=== PATIENT | male | born 1950 | race Caucasian/White ===

== ENCOUNTER 2023-12-28 13:20 | Inpatient (IN) | payer OTHER, MEDICARE, SELFPAY ==
[2023-12-28] VITALS (9 sets, daily range): BP systolic 88–169; BP diastolic 69–87; BMI 28.9; BMI 28.1
[2023-12-28 08:15] LABS: Glucose - Point of Care 122 mg/dl (70-99)
--- NOTE | 2023-12-28 08:36 | ED.GENMED ---
History of Present Illness
General
Chief Complaint: Weakness
Source: patient and family (Sons)
Exam Limitations: altered mental status
Time Seen by Provider: 12/28/23 08:21
Nursing documentation reviewed up to this point in time: agreed with
History of Present Illness
History of Present Illness:
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 Patient is somewhat limited as a
historian�while he is oriented he seems to be having some difficulty verbalizing what is wrong. His sons say that they ate dinner with him on Tuesday evening and that he appeared to be in his normal state of health. Yesterday afternoon when I saw
him they noted that he was markedly confused and symptoms have persisted since then. Patient describes himself as feeling 'disoriented.' He says it has been going on for the past few days. He says he has been having associated chills although he
reports that he checked his temperature at home and it was normal. He reports mild headache. He denies any other specific complaints�on review of systems he denies chest pain, abdominal pain, back pain/flank pain; he denies any coughing or
shortness of breath. He denies any nausea, vomiting, diarrhea. He denies any URI symptoms. He denies any urinary symptoms. He denies any change in his vision. He denies any weakness or numbness in his extremities. He has chronic wound on the
left ankle which will occasionally have some drainage but nothing unusual recently.
Review of Systems
Review of Systems
All Other Systems: ROS reviewed and negative except as documented in HPI and ROS
Constitutional: Reports fatigue and chills; Denies fever
EENT: Denies sore throat or runny nose
Respiratory: Denies cough or trouble breathing
Cardiac: Denies chest pain
ABD/GI: Denies abdominal pain, nausea, vomiting or diarrhea
: Denies dysuria or flank pain
Musculoskeletal: Denies neck pain or back pain
Skin: Reports other (Chronic wound)
Neurological: Reports headache and other ('Disoriented'); Denies dizzy, weakness or numbness
Phy Exam
Physical Exam
Physical Exam:
General: Awake, alert, oriented x3; frequently beginning sentences and then trailing off unable to complete them; no acute distress
Head: Normocephalic, atraumatic
Eyes: Conjunctiva normal, EOMI, pupils equal round and reactive to light bilaterally, visual frank intact
Throat: Airway intact, handling secretions
Neck: Trachea midline, supple without meningismus
Lungs: Clear to auscultation bilaterally, no wheezing, rales, rhonchi
Heart: Regular rate and rhythm, no murmurs, gallops, or rubs
Abd: Soft, non distended, nontender
Neuro: Cranial nerves intact 2 through 12; he does not have any dysarthria; on NIH stroke scale speech and naming testing he has no difficulty but when speaking in conversation he seems to have some hesitancy/word finding difficulties; no limb
ataxia, motor and sensory function is intact and symmetric upper and lower extremities
Skin: Patient has small wound medial left ankle no active drainage noted
Extremities: Bilateral lower extremity edema, warm and well-perfused extremities with good capillary refill
Scores
NIH Stroke Score
Level of Consciousness: 0 - Alert
LOC Questions: 0-Answers both correctly
LOC Commands: 0-Performs both correctly
Best Horizontal Gaze: 0-Normal
Visual Frank: 0=Normal, no visual loss
Facial Palsy: 0=Normal, symmetrical
Motor - Right Arm: 0=No drift 10 seconds
Motor - Left Arm: 0=No drift 10 seconds
Motor - Right Le-No drift 5 seconds
Motor - Left Le-No drift 5 seconds
Limb Ataxia: 0-Absent
Sensation: 0-Normal
Best Language: 1-Mild aphasia
Dysarthria: 0-Normal
Extinction and Inattention: 0-No abnormality
Total Score:: 1
Thrombolytic Contraindication
Inclusion and Exclusion criteria reviewed: Yes
Reasons for NON-Tx with Thrombolytics ABSOLUTE Exclusions: Greater than 4.5 hrs from onset of sxs
Heart Failure Risk
Heart Failure Risk Score: Not Applicable
Heart Score for Chest Pain Patients
STEMI patient?: Not applicable
Withdrawal Assessment of Alcohol
Withdrawal Assessment Completed?: Not applicable
Course
Orders/Labs/Results
Orders:
Orders
12/28/23 08:15
Electrocardiogram (*1) Urgent
Reason for Study: Fatigue / Weakness
EKG- Treatment ONCE
12/28/23 08:35
CT Head W/o Iv Contrast Urgent
Comment:
Reason For Exam: confusion, word finding difficulties
12/28/23 08:39
COVID-19 Antigen Urgent
Source: Nasal Swab
Complete Blood Count/With Diff Urgent
Comprehensive Metabolic Panel Urgent
12/28/23 08:45
Acetaminophen [Tylenol] 650 mg PO NOW STA
12/28/23 08:52
Lactate Level [Lactic Acid] Urgent
Blood Culture Urgent
FLORENCIA Source: Blood/Venous
Specimen Description:
12/28/23 09:12
CR Chest - 2 Views Urgent
Comment:
Reason For Exam: fever
12/28/23 09:37
Blood Culture Routine
FLORENCIA Source: Blood/Venous
Specimen Description:
12/28/23 09:43
Urinalysis Reflex To Culture Urgent
Date Specimen was Collected: 12/28/23
Time Specimen was Collected: 09:42
Urine Microscopic Reflex Cult Urgent
12/28/23 12:00
IR[facility] CONSULT Urgent
Consulting Provider: Bulmaro Pereira
Was physician already notified: Yes
Reason for Consult/Procedure: LUMBAR PUNCTURE
Acknowledgement that appropriate orders are entered: Yes
NEUROLOGY CONSULT Urgent
Consulting Provider: Raul Gutierrez
Was physician already notified: Yes
12/28/23 12:02
Acyclovir [Zovirax Injection] 1,000 mg 0.9% Sodium Chloride 250 ml [Nss] 250 ml IV NOW
CefTRIAXone [Rocephin] 2,000 mg IV NOW STA
Vancomycin [Vancocin] 2,000 mg 0.9% Sodium Chloride 500 ml [Nss] 500 ml IV NOW
Abnormal Lab Results
12/28/23 12/28/23 12/28/23
08:13 08:39 09:43
MCH 32.1 H pg
(27.0-31.0)
Absolute Lymphs (auto) 1.0 L 10^3/uL
(1.2-3.4)
Lymphocytes % 17.4 L %
(20.5-51.1)
Sodium 133 L mmol/L
(135-145)
Chloride 96 L mmol/L
(98-107)
Glucose 119 H mg/dl
(70-99)
Total Bilirubin 1.4 H mg/dl
(0.2-1.3)
Ur Occult Blood Reflex 3+ A
(Negative)
Urine RBC 7-10 A /HPF
(0-2)
POC Glucose 122 H mg/dl
(70-99)
12/28/23 08:39
12/28/23 08:39
Vital Signs
Initial and Last Documented VS:
Initial Vital Signs
Temp Pulse Resp BP Pulse Ox
36.9 C 90 16 122/87 96
12/28/23 08:12 12/28/23 08:12 12/28/23 08:12 12/28/23 08:12 12/28/23 08:12
Last Documented Vital Signs
Temp Pulse Resp BP Pulse Ox
38.1 C H 79 18 143/82 96
12/28/23 08:44 12/28/23 09:22 12/28/23 09:22 12/28/23 08:22 12/28/23 08:12
Procedures
Lumbar Puncture
Indication for procedure:: fever, confusion
Procedure completed by: Leonidas Jara MD
Consent form signed: Yes
Anesthesia/sedation: 1% Lidocaine
Preparation: cleaned with Betadine
Position: decubitis
Needle Size: 20 gauge
Needle Type: Lumbar Needle
Number of attempts: 4
Unsuccessful atempt - no CSF obtained: Yes--unsuccessful attempt
Dressing applied to puncture site: bandaid
MDM/Problems Addressed
Differential Diagnosis Includes:
Infection including UTI, pneumonia, viral syndrome, meningitis/encephalitis; stroke; brain mass; brain bleed
MDM/Problems Addressed:
73-year-old male presents to the emergency room for evaluation of change in mental status�noted to be confused yesterday afternoon by family, patient says ongoing for the past few days. Also reports subjective chills and fatigue, mild headache
today. Vital signs are normal. Physical exam as above. Plan to place an IV check labs including a CBC and a CMP; swab for COVID. Check urinalysis and chest x-ray. Will check an EKG. Will send for CT head. Monitor closely reassess after the
above.
Patient spiked a fever after arrival here; added lactate and blood cultures to lab work. Treat with Tylenol. Continue to monitor.
Labs reviewed: CBC unremarkable, CMP no clinically significant abnormalities. Urinalysis no signs of infection. Chest x-ray no acute disease. CT head negative for any acute pathology. At this point no clear source for fever or altered mentation
patient did have mild headache�I think he should be ruled out for meningitis/encephalitis. Will proceed with lumbar puncture.
Attempt at lumbar puncture at bedside unsuccessful. Case discussed with interventional radiology to facilitate LP�will try to add on later today. Will treat empirically in the meantime with antibiotics and antivirals. Case discussed with
neurology for consultation as well. Will admit for continued workup and treatment. Discussed with hospitalist.
Chronic conditions affecting care:
Chronic wound
*Radiology
Radiology exam reviewed: radiology read reviewed
*Pulse Oximetry
Patient hypoxic: no
*EKG
Interpreted by ED Provider?: Yes
Heart Rate: 79
Rate: normal
Rhythm: sinus
[place]: left axis deviation
Interval: normal interval
QRS Pattern: other (Left anterior fascicular block)
Ischemia: other (Flattening of the T waves inferiorly)
*Critical Care Note
Total Time (30-74mins, 75-104mins- exclusive of procedures): Not Applicable
Data Reviewed
Review of Other/Old Records Reveals: Labs, Records and Discharge Summary
Source: patient, records and family
Patient Management
Discussion with other providers: Hospitalist (Discussed with hospitalist) and [employer] Vice President (Discussed with neurology, discussed with interventional radiology)
Escalation/DeEscalation of care consider admission/obs:
Admission indicated
ED Attending Note
-
Portions of this chart may have been created with voice recognition software.� Occasional wrong word or��sound alike� substitutions may have occurred due to the inherent limitations of voice recognition software.
Discharge Plan
Departure
Patient Disposition: Admit
Date of Disposition: 12/28/23
Time of Disposition: 12:05
Admit to doctor: Karthik
Presentation/result/management discussed w/ accepting MD/DO: Hospitalist
Discharge Problem:
Encephalopathy, Fever
Prescriptions:
No Action
acetaminophen 325 MG tablet
650 mg PO Q4HPRN PRN (Reason: Pain)
ibuprofen [Motrin IB] 200 MG tablet
200 mg PO Q8 PRN (Reason: pain)
levofloxacin [Levaquin] 750 MG tablet
750 mg PO DAILY
Patient Comments:
pt takes 500mg in am and 250mg at night
diphenhydramine-acetaminophen [Tylenol PM Extra Strength] 1 TAB tablet
2 tab PO HS PRN (Reason: pain)
cefdinir 300 mg capsule
300 mg PO BID Qty: 20 0RF
Referrals:
Rubin Angela MD [Family Provider] -
Interventions
Interventions:
ED- Cardiac Assessment Last Done: 12/28/23 09:06
ED- Neurological Assessment Last Done: 12/28/23 09:06
ED- Pulmonary Assessment Last Done: 12/28/23 09:06
Discharge Date and Time
Print Language: UZBEK
[2023-12-28 08:49] LABS: % Basophils 0.3 % (0-2); % Immature Granulocytes 0.3 % (0-0.5); % Lymphocytes 17.4 % (20.5-51.1); % Monocytes 8.1 % (1.7-9.3); % Neutrophils 73.9 % (42.2-75.2); Absolute Monocytes 0.5 10^3/uL (0.1-0.6); Absolute Neutrophils 4.4 10^3/uL (1.4-6.5); Hematocrit 45.5 % (39.0-52.0); Hemoglobin 16.2 g/dL (13.0-18.0); Mean Corp Hgb Conc. 35.6 g/dL (33.0-37.0); Mean Corpuscular Hgb 32.1 pg (27.0-31.0); Mean Corpuscular Volume 90.1 fL (80.0-94.0); Mean Platelet Volume 10.2 fL (7.4-10.4); Nucleated Red Blood Cells % 0 % (-); Platelet Count 236 10^3/uL (130-400); Red Blood Cell Count 5.05 10^6/uL (4.70-6.10); Red Cell Dist. Width 12.3 % (11.5-14.5)
[2023-12-28 09:00] LABS: ALT (SGPT) 33 U/L (0-50); AST (SGOT) 35 U/L (17-59); Albumin 4.4 g/dl (3.5-5.0); Alkaline Phosphatase 76 U/L (38-126); Blood Urea Nitrogen 16 mg/dl (9-20); Calcium 9.3 mg/dl (8.4-10.2); Chloride 96 mmol/L (98-107); Glucose 119 mg/dl (70-99); Potassium 4.4 mmol/L (3.5-5.1); Sodium 133 mmol/L (135-145); Total Bilirubin 1.4 mg/dl (0.2-1.3); Total Protein 7.2 g/dl (6.3-8.2); eGFR > 60.00
[2023-12-28 09:15] LABS: COVID-19 Antigen Negative (Negative)
[2023-12-28] MEDS: TYLENOL 650 MG PO ×2 (09:17→16:46)
[2023-12-28 09:21] LABS: Carbon Dioxide 22 mmol/L (22-30)
[2023-12-28 10:18] LABS: Urine Albumin Trace (Neg - Trace); Urine Bilirubin Negative (Negative); Urine Character Clear (Clear); Urine Color Yellow; Urine Glucose Negative (Negative); Urine Ketone Negative (Negative); Urine Leukocyte Negative (Negative); Urine Nitrite Negative (Negative); Urine Occult Blood 3+ (Negative); Urine Specific Gravity 1.025 (<1.030); Urine Urobilinogen Negative (Neg - 1+)
[2023-12-28 11:09] LABS: Urine Mucus Few
[2023-12-28 11:10] LABS: Urine White Cell 0-2 /HPF (0-5)
[2023-12-28] MEDS: ROCEPHIN 2000 MG IV (12:21)
--- NOTE | 2023-12-28 12:27 | HPS.HSE ---
Addendum entered and electronically signed by Sinan Rogers MD 12/28/23 13:25:
I saw and examined the patient.
The MANAGEMENT ASSISTANT or PA's note was reviewed and I agree with the note.
Comment: 73-year-old male who presents with change in mental status over the last 24 hours. He is felt disoriented and also noted mild headache and chills.
143/82, 79, 18, 98.9 �F, 96% on room air
Gen: NAD, AAOx3.
Eyes: EOMI, PERRLA, no scleral icterus.
Neck: supple.
CV: RRR, +S1/S2, no m/r/g.
Resp: CTAB, no rales, wheezes, or rhonchi.
Abd: +BS, soft, NT, ND
Skin: No rashes. Evidence of prior surgery in the medial left ankle. There is a sinus tract that is draining serous fluid. No evidence of cellulitis
Neuro: CN 2-12 intact, non-focal.
Psych: Normal mood and affect.
Lab Results
12/28/23 12/28/23 12/28/23
08:13 08:39 08:52
WBC 6.0
RBC 5.05
Hgb 16.2
Hct 45.5
MCV 90.1
MCH 32.1 H
MCHC 35.6
RDW 12.3
Plt Count 236
MPV 10.2
Abs Immat Gran (auto) 0.0
Absolute Neuts (auto) 4.4
Absolute Lymphs (auto) 1.0 L
Absolute Monos (auto) 0.5
Absolute Eos (auto) 0.0
Absolute Basos (auto) 0.0
Immature Gran % 0.3
Neutrophils % 73.9
Lymphocytes % 17.4 L
Monocytes % 8.1
Eosinophils % 0.0
Basophils % 0.3
Nucleated RBC % 0
Sodium 133 L
Potassium 4.4
Chloride 96 L
Carbon Dioxide 22
BUN 16
Creatinine 1.2
eGFR > 60.00
Glucose 119 H
Lactic Acid 1.0
Calcium 9.3
Total Bilirubin 1.4 H
AST 35
ALT 33
Alkaline Phosphatase 76
Total Protein 7.2
Albumin 4.4
Urine Color
Urine Clarity
Urine pH
Ur Specific [place]
Urine Ketones
Ur Occult Blood Reflex
Urine Nitrite (Reflex)
Urine Bilirubin
Urine Urobilinogen
Leukocyte Esterase Rfl
Urine RBC
Urine WBC (Reflex)
Ur Squamous Epith Cells
Urine Mucus
Urine Glucose
Urine Albumin (Reflex)
CSF Appearance
CSF Color
CSF WBC
CSF RBC
CSF Cell Count Tube #
CSF Granulocytes
CSF Lymphocytes
CSF Macrophages
CSF Crenated Cells
CSF Comment
CSF Glucose
CSF Total Protein
SARS-CoV-2 Antigen Negative
POC Glucose 122 H
12/28/23 12/28/23 12/28/23
09:43 11:24 11:24
WBC
RBC
Hgb
Hct
MCV
MCH
MCHC
RDW
Plt Count
MPV
Abs Immat Gran (auto)
Absolute Neuts (auto)
Absolute Lymphs (auto)
Absolute Monos (auto)
Absolute Eos (auto)
Absolute Basos (auto)
Immature Gran %
Neutrophils %
Lymphocytes %
Monocytes %
Eosinophils %
Basophils %
Nucleated RBC %
Sodium
Potassium
Chloride
Carbon Dioxide
BUN
Creatinine
eGFR
Glucose
Lactic Acid
Calcium
Total Bilirubin
AST
ALT
Alkaline Phosphatase
Total Protein
Albumin
Urine Color Yellow
Urine Clarity Clear
Urine pH 6.0
Ur Specific [place] 1.025
Urine Ketones Negative
Ur Occult Blood Reflex 3+ A
Urine Nitrite (Reflex) Negative
Urine Bilirubin Negative
Urine Urobilinogen Negative
Leukocyte Esterase Rfl Negative
Urine RBC 7-10 A
Urine WBC (Reflex) 0-2
Ur Squamous Epith Cells 3-5
Urine Mucus Few
Urine Glucose Negative
Urine Albumin (Reflex) Trace
CSF Appearance Cancelled Cancelled
CSF Color Cancelled
CSF WBC
CSF RBC
CSF Cell Count Tube #
CSF Granulocytes
CSF Lymphocytes
CSF Macrophages
CSF Crenated Cells
CSF Comment
CSF Glucose
CSF Total Protein
SARS-CoV-2 Antigen
POC Glucose
12/28/23 12/28/23 12/28/23
11:24 11:24 11:24
WBC
RBC
Hgb
Hct
MCV
MCH
MCHC
RDW
Plt Count
MPV
Abs Immat Gran (auto)
Absolute Neuts (auto)
Absolute Lymphs (auto)
Absolute Monos (auto)
Absolute Eos (auto)
Absolute Basos (auto)
Immature Gran %
Neutrophils %
Lymphocytes %
Monocytes %
Eosinophils %
Basophils %
Nucleated RBC %
Sodium
Potassium
Chloride
Carbon Dioxide
BUN
Creatinine
eGFR
Glucose
Lactic Acid
Calcium
Total Bilirubin
AST
ALT
Alkaline Phosphatase
Total Protein
Albumin
Urine Color
Urine Clarity
Urine pH
Ur Specific [place]
Urine Ketones
Ur Occult Blood Reflex
Urine Nitrite (Reflex)
Urine Bilirubin
Urine Urobilinogen
Leukocyte Esterase Rfl
Urine RBC
Urine WBC (Reflex)
Ur Squamous Epith Cells
Urine Mucus
Urine Glucose
Urine Albumin (Reflex)
CSF Appearance
CSF Color Cancelled
CSF WBC Cancelled Cancelled
CSF RBC Cancelled Cancelled
CSF Cell Count Tube # Cancelled
CSF Granulocytes
CSF Lymphocytes
CSF Macrophages
CSF Crenated Cells
CSF Comment
CSF Glucose
CSF Total Protein
SARS-CoV-2 Antigen
POC Glucose
12/28/23 12/28/23 12/28/23
11:24 11:24 11:24
WBC
RBC
Hgb
Hct
MCV
MCH
MCHC
RDW
Plt Count
MPV
Abs Immat Gran (auto)
Absolute Neuts (auto)
Absolute Lymphs (auto)
Absolute Monos (auto)
Absolute Eos (auto)
Absolute Basos (auto)
Immature Gran %
Neutrophils %
Lymphocytes %
Monocytes %
Eosinophils %
Basophils %
Nucleated RBC %
Sodium
Potassium
Chloride
Carbon Dioxide
BUN
Creatinine
eGFR
Glucose
Lactic Acid
Calcium
Total Bilirubin
AST
ALT
Alkaline Phosphatase
Total Protein
Albumin
Urine Color
Urine Clarity
Urine pH
Ur Specific [place]
Urine Ketones
Ur Occult Blood Reflex
Urine Nitrite (Reflex)
Urine Bilirubin
Urine Urobilinogen
Leukocyte Esterase Rfl
Urine RBC
Urine WBC (Reflex)
Ur Squamous Epith Cells
Urine Mucus
Urine Glucose
Urine Albumin (Reflex)
CSF Appearance
CSF Color
CSF WBC
CSF RBC
CSF Cell Count Tube # Cancelled
CSF Granulocytes Cancelled Cancelled
CSF Lymphocytes Cancelled Cancelled
CSF Macrophages Cancelled
CSF Crenated Cells
CSF Comment
CSF Glucose
CSF Total Protein
SARS-CoV-2 Antigen
POC Glucose
12/28/23 12/28/23 12/28/23
11:24 11:24 11:24
WBC
RBC
Hgb
Hct
MCV
MCH
MCHC
RDW
Plt Count
MPV
Abs Immat Gran (auto)
Absolute Neuts (auto)
Absolute Lymphs (auto)
Absolute Monos (auto)
Absolute Eos (auto)
Absolute Basos (auto)
Immature Gran %
Neutrophils %
Lymphocytes %
Monocytes %
Eosinophils %
Basophils %
Nucleated RBC %
Sodium
Potassium
Chloride
Carbon Dioxide
BUN
Creatinine
eGFR
Glucose
Lactic Acid
Calcium
Total Bilirubin
AST
ALT
Alkaline Phosphatase
Total Protein
Albumin
Urine Color
Urine Clarity
Urine pH
Ur Specific [place]
Urine Ketones
Ur Occult Blood Reflex
Urine Nitrite (Reflex)
Urine Bilirubin
Urine Urobilinogen
Leukocyte Esterase Rfl
Urine RBC
Urine WBC (Reflex)
Ur Squamous Epith Cells
Urine Mucus
Urine Glucose
Urine Albumin (Reflex)
CSF Appearance
CSF Color
CSF WBC
CSF RBC
CSF Cell Count Tube #
CSF Granulocytes
CSF Lymphocytes
CSF Macrophages Cancelled
CSF Crenated Cells Cancelled Cancelled
CSF Comment Cancelled Cancelled
CSF Glucose Cancelled
CSF Total Protein Cancelled
SARS-CoV-2 Antigen
POC Glucose
CXR (read by me): No acute cardiopulmonary abnormality.
CT brain: No acute intracranial abnormality noted.
Acute encephalopathy:
-Extensive workup in the ER is unrevealing. Chest x-ray and CT scan of the brain are unremarkable. Urinalysis is not suggestive of urinary tract infection. No leukocytosis, patient afebrile. Left ankle without evidence of infection and appears
unchanged from prior as per patient's family at bedside.
-LP attempted in the ER. This is the neck step in workup. Consult IR for diagnostic lumbar puncture. Check Lyme and HSV PCR.
-Continue with empiric vancomycin/cefepime/acyclovir
-Consult neurology and infectious disease
Original Note:
Family Physician
-
Family Physician: Rubin Angela
Chief Complaint
-
Confusion, chills, headache
History of Present Illness
73-year-old male from home complaining of feeling disoriented since yesterday 12/27/2023 his son reported to the ER yesterday afternoon he noticed his father markedly confused complaining of chills with a mild headache. The Patient denies any tick
bites, rashes sore throat, recent illness, blurred vision, chest pain, palpitations, shortness of breath, abdominal pain, nausea, vomiting, diarrhea, urinary symptoms, rash, recent illness, recent sick contacts. He is on daily Bactrim for his
chronic left ankle wound for the past 20 years he has past medical history of chondrosarcoma of the left ankle with removal and , chronic left ankle wound, left ankle fusion varicose veins, former smoker.
Medical History
Past Medical History
Past Medical History: Reports Other
Additional Past Medical History:
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
chronic left ankle wound from above
left ankle fusion varicose veins
Former smoker
Daily alcohol use 1 drink
Past Surgical History: Reports Other
Additional Past Surgical History:
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
Social History
Tobacco: Former Smoker (30-year on/off 1/2 pack/day quit 3 years ago 2020)
Alcohol: Daily (1 drink of gin mixed with juice or soda)
Drug: None
Personal:
Living: Alone
Employment: Employed ([employer])
Family History
Family History: Other (Father Alzheimer's late 70s mother age 90 old age)
Allergies / Home Medications
Allergies reflects when Allergies were last updated in [facility].
Home Medications with original date entered in [facility]
Allergy/Medication List:
Allergies
Allergy/AdvReac Type Severity Reaction Status Date / Time
No Known Allergies Allergy Verified 03/06/23 11:13
Home Medications
sulfamethoxazole 800 mg-trimethoprim 160 mg tablet 1 tab PO DAILY ankle wound 12/28/23
Review of Systems
-
History Source: Patient and Family (Son at bedside)
A 12 point ROS was completed and negative except as noted: Yes
Constitutional: Reports Fatigue and Chills; Denies Fever
EENT: Denies Sore Throat or Runny Nose
Respiratory: Denies Cough or Trouble Breathing
Cardiac: Denies Chest Pain, Diaphoresis, Palpitations or Syncope
Abdomen/GI: Denies Abdominal Pain, Nausea, Vomiting, Diarrhea, Constipated, Bloody Stools or Black Stools
: Denies Dysuria, Frequency, Flank Pain, Incontinence, Difficulty Voiding, Urgency, Bleeding or Dark Urine
Musculoskeletal: Denies Joint Pain, Joint Swelling, Muscle Pain, Muscle Stiffness or Edema
Skin: Reports Other (Chronic old incision/removal costochondral mass left medial aspect of left lower ankle 20 years ago no open active wound); Denies Itching or Rash
Neurological: Reports Headache; Denies Dizzy or Weakness
Endocrine: Reports No Symptoms
Hematologic/Lymphatic: Reports No Symptoms
Psych: Reports Calm
Physical Exam
Vital Signs
Vital Signs
Temp Pulse Resp BP Pulse Ox
98.9 F 79 18 143/82 96
12/28/23 12:21 12/28/23 09:22 12/28/23 09:22 12/28/23 08:22 12/28/23 08:12
Physical Exam
General: Comfortable, Conversant, Fever, Chills and Other (Lethargic falls asleep during exam, although when awaken is oriented x 3)
HEENT: NormoCephalic, Anicteric, Moist mucous membranes, Atraumatic, PERRLA (EOMs intact), [place] Conjunctivae, No Ptosis and Neck Nontender (Negative nuchal rigidity)
Respiratory: Clear; No Wheezes, Rales or Rhonchi
Cardiac: S1/S2 and Regular Rhythm; No Murmur, Rub, Gallop or Peripheral Edema
Breast: Deferred by me
GI: Soft, Non Tender, Non Distended, Normal Bowel Sounds and No Hepatosplenomegaly
Rectal: Deferred by Provider
Genito-urinary: Deferred by me
Musculoskeletal: No Clubbing, No Cyanosis, No Edema and Other (Chronic old incision/removal costochondral mass left medial aspect of left lower ankle 20 years ago no open active wound)
Skin: Warm and Dry; No Rash or Jaundice
Neuro: No Motor Deficits, Nonfocal/grossly intact, Cranial Nerves Intact, No Sensory Deficits and Other (Lethargic falls asleep during exam although is oriented x 3 name, person, place, son, history); No Slurred Speech, Facial Droop or Tremors
Psych: Calm
Laboratory Results
-
12/28/23 08:39
12/28/23 08:39
Laboratory Results
Lactic Acid 1.0 mmol/L (0.7-2.0) 12/28/23 08:52
Total Bilirubin 1.4 mg/dl (0.2-1.3) H 12/28/23 08:39
AST 35 U/L (17-59) 12/28/23 08:39
ALT 33 U/L (0-50) 12/28/23 08:39
Alkaline Phosphatase 76 U/L (38-126) 12/28/23 08:39
Impression/Plan
-
Impression/plan:
Admit to MedSurg
#Encephalopathy with fever concern for possible meningitis/encephalitis
UA, chest x-ray, COVID-negative
-LP attempt by ER unsuccessful
-IR consulted for LP later today-check fluid analysis
-Neurochecks every 4
-Consult Infectious disease
-Consult Neurology
-Follow blood cultures x 2, CBC, CMP check Lyme
-Tylenol as needed headache/fever
-Acyclovir 1000 mg now then 1000 mg every 8 hours
-IV Rocephin, IV vancomycin
-PT/OT/case management consult
#Chondrosarcoma of the left ankle with removal and , chronic left ankle wound closed
#Chronic left ankle fusion varicose veins
#Chronic Bactrim daily for his chronic left ankle wound for the past 20 years
-HOLD Bactrim
#Daily alcohol use
Reports 1 drink of gin mixed with juice or soda
-Will check B12 level
#Former smoker
On and off 30-year 1/2 pack/day quit in 2020
DVT prophylaxis
SCDs
Full code
[2023-12-28] MEDS: ZOVIRAX INJECTION 270 MG IV (13:05)
[2023-12-28 13:21] LABS: INR 1.17; PT 14.9 Sec (11.4-14.6)
[2023-12-28 16:18] LABS: CSF Clarity Clear; CSF Color Colorless; CSF Tube # 4
[2023-12-28 16:19] LABS: Red Cell Count/CSF 2 mm^3
[2023-12-28 16:20] LABS: Spinal Fluid Glucose 54 mg/dl (40-70); Spinal Fluid Protein 56 mg/dl (12-60)
[2023-12-28 16:31] LABS: Folate 15.1 ng/ml (2.76-20); Vitamin B12 876 pg/ml (239-931)
[2023-12-28] MEDS: VANCOCIN 540 MG IV (16:46)
[2023-12-28 16:55] LABS: White Cell Count/CSF 30 mm^3 (0-5)
--- NOTE | 2023-12-28 17:26 | CON.ID ---
Consultation
-
Date/Time Consultation Requested: 12/28/2023 1224
Date/Time Consultation Performed: 12/28/2023 1700
Requesting Provider: Loree Gibbons
Performing Provider: Dr. Mansfield
Reason for Consultation: Encephalitis
Chief Complaint / Past History
History of Present Illness
Tom Peters is a 73-year-old man with a significant past medical history of chronic osteomyelitis of the left ankle area being evaluated at the request of Loree Gibbons in regards to encephalopathy. History is obtained from chart review, patient
interview, and history obtained from the patient's family who is at the bedside.
According to family, the patient ate dinner 2 days ago and was feeling well. Yesterday, when the patient went to work he reported feeling confused with some mild headache. Because of not feeling well, he went home early, and when the family
checked on him later in the evening he reportedly was not making sense. There was ongoing confusion noted this a.m., and the family brought him to the emergency room for further workup and evaluation.
At present, he feels groggy, and has been feeling feverish, but denies any significant pain. His son reports that he has been somewhat somnolent.
In the ER he was noted to have fever. He is status post lumbar puncture.
The patient reports recent travel to [place] approximately 3 weeks ago, along with travel to [facility] more recently. He does not recall any tick bites. He does not recall any mosquito bites. He notes no history of rash. He denies any neck
pain or stiffness. He does have 1 dog, but has not seen any ticks on the dog.
Past History
Additional Past Medical History:
Chondrosarcoma of the left ankle
Chronic osteomyelitis left ankle
Additional Past Surgical History:
Left ankle surgery
Allergy History:
No Known Allergies Allergy (Verified 03/06/23 11:13)
Medications Reviewed: Yes
Current Antibiotics:
Acyclovir
Vancomycin
Ceftriaxone
Social History
Tobacco: Former Smoker
Alcohol: Daily
Drug: None
Personal:
Living: Alone
Employment: Employed
Family History
Family History: Not Pertinent
Review of Systems
Vital Signs
Temp Pulse Resp BP Pulse Ox
102.2 F H 89 18 155/79 96
12/28/23 16:10 12/28/23 16:10 12/28/23 16:10 12/28/23 16:10 12/28/23 16:10
Physical Exam
Physical Exam
Constitutional: No Acute Distress, Well Developed, Comfortable and Non-toxic
Head: Normocephalic
Eyes: Pupils Equal, Pupils Round, No Conjunctival Hemorrhage and Sclera Anicteric
Pharynx: Erythema
Oral: No Thrush and No Ulcers
Cardiovascular: Regular Rate and S1/S2; Negative S3/S4 or Murmur
Pulmonary: Clear and Non Labored
Gastrointestinal: Soft, Non Tender, Non Distended, Normal Bowel Sounds, No Rebound and No Guarding
Genito-Urinary: Negative Reeder or Suprapubic Tenderness
Extremities: Edema (LLE); Negative Cyanosis or Erythema
Musculoskeletal: Joint Swelling (L ankle area (chronically))
Skin: Warm and Dry; Negative Rash or Jaundice
Wound: Other (left medial ankle; punctate)
Neurological: Awake and Alert; Negative Meningeal Signs (No nuchal rigidity)
Psychological: Calm; Negative Agitated
Lab / Diagnostic Study Results
12/28/23 08:39
12/28/23 08:39
Abs Immat Gran (auto) 0.0 10^3/uL (0-0.05) 12/28/23 08:39
Absolute Neuts (auto) 4.4 10^3/uL (1.4-6.5) 12/28/23 08:39
Absolute Lymphs (auto) 1.0 10^3/uL (1.2-3.4) L 12/28/23 08:39
Absolute Monos (auto) 0.5 10^3/uL (0.1-0.6) 12/28/23 08:39
Absolute Basos (auto) 0.0 10^3/uL (0-0.2) 12/28/23 08:39
Immature Gran % 0.3 % (0-0.5) 12/28/23 08:39
Neutrophils % 73.9 % (42.2-75.2) 12/28/23 08:39
Lymphocytes % 17.4 % (20.5-51.1) L 12/28/23 08:39
Monocytes % 8.1 % (1.7-9.3) 12/28/23 08:39
Eosinophils % 0.0 % (0-6) 12/28/23 08:39
Basophils % 0.3 % (0-2) 12/28/23 08:39
PT 14.9 Sec (11.4-14.6) H 12/28/23 12:56
INR 1.17 12/28/23 12:56
Lactic Acid 1.0 mmol/L (0.7-2.0) 12/28/23 08:52
Ur Squamous Epith Cells 3-5 /LPF (Few) 12/28/23 09:43
Microbiology Results
Micro:
12/28/23 15:12 Meningitis/Encephalitis Panel (PCR) - Pending
Csf
12/28/23 15:12 CSF Culture - Pending
Csf Gram Stain - Pending
12/28/23 09:37 Blood Culture - Pending
Blood/Venous
12/28/23 08:52 Blood Culture - Pending
Blood/Venous
Imaging:
12/28/2023 CT head without contrast: No acute intracranial abnormalities noted. No large vessel territory infarction or mass. No acute intracranial hemorrhage. Please see full dictation for additional detail.
Assessment / Plan
Acute encephalopathy
- suspect viral etiology (ie. west nile virus)
Fever
Hx chronic (L) ankle osteomyelitis
- on suppressive bactrim
Recommendations:
Continue current abx/antivirals while PCR meningitis panel is pending, but if found to be negative, will discontinue further Rocephin, vancomycin and acyclovir.
Check West Nile IgM on CSF.
Continue with supportive measures.
Monitor neurostatus/cognition
[2023-12-28 17:37] LABS: Spinal Fluid Granulocytes 48 %; Spinal Fluid Lymphocytes 37 %; Spinal Fluid Macrophages 15 %
--- NOTE | 2023-12-28 19:25 | PTCARENOTE ---
Pt received from IR s/p lumbar puncture. Bandaid intact on back. Ambulated to unit bed from stretcher with minimal assistance. Pt febrile, oral temp of 102.2F. PRN Tylenol administered. Ordered Vancomycin infusing. Neurocheck as documented. SaO2 96%
on room air. Lungs clear to auscultation. Regular rhythm. No edema. Bowel sounds present. Regular diet, ate soup and drank augustine agapito provided by family. Chronic wound on interior left ankle.
--- NOTE | 2023-12-28 19:37 | PHA.VAN.IN ---
Assessment
- Assessment
Renal Function: Appears similar to baseline (03/06/23 BASELINE SCR: 1.3)
Concomitant Antimicrobials: ACYCLOVIR; ROCEPHIN
- Previous Dosing Experience
Previous Regimen: 1250MG IV Q12H
Date of Regimen: 03/31/09
Provided Trough of: UNKNOWN
Provided AUC of: UNKNOWN
Patient's SCR is: Decreased compared to previous dosing experience (03/31/09 SCR = 0.9)
Patient's weight is: Elevated compared to previous dosing experience (03/31/09 WT = 102.9 KG)
AUC Dosing Plan
- Dosing Variables
Dosing Weight (kg): 107.3
Dosing CrCl (ml/min): 71
Vd coefficient (L/kg): 0.7
- Empiric Dosing
Initial / Loading Dose: 2GM
Maintenance Regimen: 1GM IV Q12H
Estimated AUC (mcg*h/mL): 434
Estimated Peak (mcg*h/mL): 25
Estimated Trough (mcg/ml): 12.5
Estimated Half Life (H): 10.9
Pharmacokinetics Vancomycin I
- -
Patient Age: 73
Patient Sex: Male
Vancomycin Day #: 1
Indication: Other
Requesting Provider: ANN
Height / Weight:
Height 6 ft 5 in
Actual Weight 107.275 kg
- Vital Signs / Lab Results
Temp Pulse Resp BP Pulse Ox
102.2 F H 89 18 155/79 96
12/28/23 16:10 12/28/23 16:10 12/28/23 16:10 12/28/23 16:10 12/28/23 16:30
Lab Results - Hematology
12/28/23
08:39
WBC 6.0
Lab Results - Chemistry
12/28/23
08:39
BUN 16
Creatinine 1.2
Albumin 4.4
12/28/23
08:52
Lactic Acid 1.0
Lab Results - Urine
12/28/23
09:43
Urine Nitrite (Reflex) Negative
Leukocyte Esterase Rfl Negative
Urine WBC (Reflex) 0-2
Ur Squamous Epith Cells 3-5
Microbiology Results
12/28/23 15:12 Meningitis/Encephalitis Panel (PCR) - Final
Csf
[2023-12-28] MEDS: ZOVIRAX INJECTION 266 MG IV (22:12)
[2023-12-29] MEDS: TYLENOL 650 MG PO ×4 (00:30→20:19)
--- NOTE | 2023-12-29 00:51 | PTCARENOTE ---
Noted patient to have rigors, oral temp 101.0, axillary temp 102.8, rectal temp 103.4. No change in neurological status. Tylenol given. Will continue to monitor.
[2023-12-29] MEDS: ZOVIRAX INJECTION 266 MG IV (05:23)
[2023-12-29 05:36] LABS: % Basophils 0.4 % (0-2); % Immature Granulocytes 0.4 % (0-0.5); % Lymphocytes 20.6 % (20.5-51.1); % Monocytes 12.8 % (1.7-9.3); % Neutrophils 65.8 % (42.2-75.2); Absolute Lymphocytes 1.5 10^3/uL (1.2-3.4); Absolute Monocytes 0.9 10^3/uL (0.1-0.6); Absolute Neutrophils 4.7 10^3/uL (1.4-6.5); Hematocrit 41.7 % (39.0-52.0); Mean Corpuscular Hgb 32.6 pg (27.0-31.0); Mean Corpuscular Volume 90.7 fL (80.0-94.0); Mean Platelet Volume 9.9 fL (7.4-10.4); Nucleated Red Blood Cells % 0 % (-); Platelet Count 192 10^3/uL (130-400); White Blood Cell Count 7.2 10^3/uL (4.8-10.8)
[2023-12-29 06:10] LABS: ALT (SGPT) 26 U/L (0-50); AST (SGOT) 28 U/L (17-59); Albumin 3.4 g/dl (3.5-5.0); Alkaline Phosphatase 65 U/L (38-126); Blood Urea Nitrogen 14 mg/dl (9-20); Calcium 8.8 mg/dl (8.4-10.2); Carbon Dioxide 20 mmol/L (22-30); Chloride 98 mmol/L (98-107); Estimated Creatinine Clearance 85 ml/min; Glucose 105 mg/dl (70-99); Potassium 4.1 mmol/L (3.5-5.1); Sodium 133 mmol/L (135-145); Total Bilirubin 1.4 mg/dl (0.2-1.3); eGFR > 60.00
[2023-12-29] MEDS: VANCOCIN 200 IV (07:15)
[2023-12-29 07:45] VITALS: BP 125/76
--- NOTE | 2023-12-29 10:42 | CM ---
Patient seen at bedside with daughter also present. Patient states he is for discharge later today. CM reviewed IMM and signed form placed on chart. Patient states that he has a 2 story home with his dog. Patient PCP is Dr. Angela and he uses the [facility] in [place] on [facility]. Patient does not anticipate any discharge planning needs. Patient daughter or children for transportation home. CM will continue to follow for discharge planning needs.
Plan; home with no needs anticipated.
[2023-12-29 12:35] VITALS: BP 132/73; BP 137/60; PULSE 79; PULSE 80; O2SAT 95; O2SAT 96
--- NOTE | 2023-12-29 12:36 | W.PN.HOSP.TC ---
Today's Communication/Plan
-
see plan
Assessment / Plan
Assessment / Plan
Gen: remains NAD, AAOx3.
Eyes: EOMI, PERRLA, no scleral icterus.
Neck: supple.
CV: remains RRR, +S1/S2, no m/r/g.
Resp: remains CTAB, no rales, wheezes, or rhonchi.
Abd: +BS, soft, NT, ND
Skin: No rashes.
Neuro: CN 2-12 intact, non-focal.
Psych: Normal mood and affect.
CXR (read by me): No acute cardiopulmonary abnormality.
CT brain: No acute intracranial abnormality noted.
MRI brain: No acute intracranial abnormality noted.
Acute encephalopathy:
-Extensive workup in the ER was unrevealing. Chest x-ray and CT scan of the brain are unremarkable. Urinalysis is not suggestive of urinary tract infection. No leukocytosis.
-pt febrile O/N
-COVID NEG
-Lyme IgG/IgM Pending
-s/p LP, WBC 30 with granulocytic predominance, glucose and protein normal. Acute meningitis PCR panel negative. West Nile IgM pending.
-MRI brain unremarkable
-was on empiric vancomycin/cefepime/acyclovir, all stopped by ID
-neurology to see in c/s
FULL/Lovenox
Anticipated Discharge: Within 24 hours
Subjective/Interval History
-
Date of Service: December 29, 2023
No new complaints.
Objective Data
-
Labs:
Laboratory Results
12/29/23
05:19
WBC 7.2
Hgb 15.0
Hct 41.7
Plt Count 192
Sodium 133 L
Potassium 4.1
Chloride 98
Carbon Dioxide 20 L
BUN 14
Creatinine 1.0
Glucose 105 H
Calcium 8.8
Total Bilirubin 1.4 H
AST 28
ALT 26
Alkaline Phosphatase 65
Vital Signs:
Vital Signs
Temp Pulse Resp BP Pulse Ox
98.7 F 79 16 125/76 98
12/29/23 07:45 12/29/23 07:45 12/29/23 07:45 12/29/23 07:45 12/29/23 07:45
I&O
12/28/23 12/29/23 12/30/23
06:59 06:59 06:59
Intake Total 972 / 972
Balance 972 / 972
[2023-12-29 13:25] VITALS: BP 144/72
[2023-12-29] MEDS: FLUSH (NSS) 2 FLUSH IV (13:54)
[2023-12-29] MEDS: ZOFRAN 4 MG IV (13:54)
[2023-12-29 13:55] LABS: Lyme Antibody Screen, EIA Negative (Negative)
--- NOTE | 2023-12-29 13:57 | WOUNDNOTE ---
LEFT MEDIAL ANKLE
--- NOTE | 2023-12-29 14:03 | WOUNDNOTE ---
[facility] RN NOTE: Reviewed chart, spoke to RN, patient and patients caregiver. Patient has left medial ankle chronic wound x 20 years and was on daily Bactrim prior to hospitalization. The wound appears to resemble a puncture site and drains small
amount of serous fluid constantly. Per patient and caregiver, wound appears unchanged over many years. Patient declines wound care or any plan to help manage drainage. He declines compression as well. Dr. Rogers and MITCH Caba made aware. Will sign off.
--- NOTE | 2023-12-29 14:26 | W.PN.ID1 ---
Date of Service
Date of Service: December 29, 2023
Today's Communication
Continue supportive measures.
Assessment / Plan
Acute encephalopathy
- suspect viral etiology (ie. west nile virus, others)
Fever
Nausea/vomiting
Hx chronic (L) ankle osteomyelitis
- on suppressive bactrim
Recommendations:
Meningitis PCR panel negative. Antibiotics discontinued.
Arthropod related viral serology ordered on CSF (West Nile, eastern equine, others)
Continue with supportive measures.
Monitor neurostatus/cognition
Follow white count and temperature curve.
����������������������������������������������������������
Chief Complaint
-: Fever and Other (Encephalopathy)
Subjective / Review of Systems
Patient seen and examined. Nausea and vomiting today. Ongoing fevers overnight.
At present, patient denies any headache.
Vital Signs / Physical Exam
Vital Signs
Vital Signs
Temp Pulse Resp BP Pulse Ox
100.9 F H 96 16 144/72 97
12/29/23 13:25 12/29/23 13:25 12/29/23 13:25 12/29/23 13:25 12/29/23 13:25
Physical Exam
Constitutional: Well Developed, Acutely Ill and Non-toxic
Cardiovascular: S1/S2; Negative S3/S4
Pulmonary: Clear and Non Labored
Gastrointestinal: Soft, Non Tender and Non Distended
Neurological: Awake, Alert and Oriented; Negative Meningeal Signs (No nuchal rigidity)
Psychological: Calm
Objective Data
Lab Data
Lab Results
12/29/23 05:19
12/29/23 05:19
PT 14.9 Sec (11.4-14.6) H 12/28/23 12:56
INR 1.17 12/28/23 12:56
Estimated Creat Clear 85 ml/min 12/29/23 05:19
Lactic Acid 1.0 mmol/L (0.7-2.0) 12/28/23 08:52
Total Bilirubin 1.4 mg/dl (0.2-1.3) H 12/29/23 05:19
AST 28 U/L (17-59) 12/29/23 05:19
ALT 26 U/L (0-50) 12/29/23 05:19
Alkaline Phosphatase 65 U/L (38-126) 12/29/23 05:19
Most recent labs reviewed.
Micro Results:
12/28/23 15:12 CSF Culture - Preliminary
Csf No Growth After 18-24 Hours
Gram Stain - Preliminary
12/28/23 09:37 Blood Culture - Preliminary
Blood/Venous No Growth in 24 hours- Final report to follow
12/28/23 08:52 Blood Culture - Preliminary
Blood/Venous No Growth in 24 hours- Final report to follow
12/28/23 22:27 MRSA Screen - Pending
Nose
12/28/23 15:12 Meningitis/Encephalitis Panel (PCR) - Final
Csf
Imaging:
12/28/2023 CT head without contrast: No acute intracranial abnormalities noted. No large vessel territory infarction or mass. No acute intracranial hemorrhage. Please see full dictation for additional detail.
[2023-12-29 15:22] VITALS: BP 104/62
[2023-12-29] MEDS: LOVENOX 40 MG SC (17:48)
[2023-12-29 23:00] VITALS: BP 117/64
[2023-12-30 03:41] LABS: Glucose - Point of Care 119 mg/dl (70-99)
[2023-12-30 03:45] VITALS: BP 124/67
[2023-12-30 04:00] LABS: % Basophils 0.3 % (0-2); % Eosinophils 0.1 % (0-6); % Immature Granulocytes 0.4 % (0-0.5); % Lymphocytes 23.1 % (20.5-51.1); % Monocytes 10.1 % (1.7-9.3); Absolute Lymphocytes 2.4 10^3/uL (1.2-3.4); Absolute Neutrophils 6.7 10^3/uL (1.4-6.5); Hematocrit 41.8 % (39.0-52.0); Hemoglobin 15.1 g/dL (13.0-18.0); Mean Corp Hgb Conc. 36.1 g/dL (33.0-37.0); Mean Corpuscular Hgb 32.9 pg (27.0-31.0); Mean Corpuscular Volume 91.1 fL (80.0-94.0); Mean Platelet Volume 9.9 fL (7.4-10.4); Nucleated Red Blood Cells % 0 % (-); Platelet Count 206 10^3/uL (130-400); Red Blood Cell Count 4.59 10^6/uL (4.70-6.10); Red Cell Dist. Width 11.9 % (11.5-14.5); White Blood Cell Count 10.2 10^3/uL (4.8-10.8)
[2023-12-30 04:15] LABS: INR 1.19; PT 15.1 Sec (11.4-14.6)
[2023-12-30 04:16] LABS: APTT 28.3 Sec (23.4-35.0); Lactic Acid 1.9 mmol/L (0.7-2.0)
[2023-12-30 04:17] LABS: ALT (SGPT) 24 U/L (0-50); AST (SGOT) 25 U/L (17-59); Albumin 3.5 g/dl (3.5-5.0); Alkaline Phosphatase 63 U/L (38-126); Blood Urea Nitrogen 15 mg/dl (9-20); Calcium 9.1 mg/dl (8.4-10.2); Carbon Dioxide 18 mmol/L (22-30); Chloride 100 mmol/L (98-107); Estimated Creatinine Clearance 85 ml/min; Glucose 125 mg/dl (70-99); Potassium 4.2 mmol/L (3.5-5.1); Sodium 134 mmol/L (135-145); Total Bilirubin 1.5 mg/dl (0.2-1.3); Total Protein 6.1 g/dl (6.3-8.2); eGFR > 60.00
--- NOTE | 2023-12-30 04:25 | W.PN.UPDATE ---
Update Note
Progress Note Update
FINANCIAL ENGINEER called
Nursing reported they heard a sound and noted patient was found on the floor. Patient denies hitting head, paper towel durand noted to be broken. Nursing reports patient found sitting on the floor. patient got up by himself and came to bed with
staff supervision and had an episode where he lost consciousness and noted to have eyes rolled back with profusely sweating for 30 seconds per nursing likely vasovagal as patient stated he was trying to have a BM, last BM 2 days ago. Vitals at that
time 98.6, HR 82, 124/67 94-96% RA BS 119. EKG NSR 82. Patient is OX3, able to make needs known per nursing. GCS 15. will order CBC Mag, BMP, Troponin, Lactic acid, CT head r/o bleed. Patient only received Lovenox.
Troponin 0.069 will trend. labs unremarkable
Fall precautions advised.
[2023-12-30 04:38] VITALS: BP 105/60
[2023-12-30 04:38] LABS: Troponin I 0.069 ng/ml
--- NOTE | 2023-12-30 04:50 | RR ---
A loud crash was followed by a toilet alarm. Staff ran in to see pt sitting on the floor in front of the toilet. Pt aaox3 and denied hitting his head but was very diaphoretic. Pt told to stay on the floor so RNs could assess for injuries and take
vital signs/BS. Pt refused and pulled himself up. Pt unsteady and uncooperative so staff sat pt on BSC. Pt's eyes rolled to back of head and pt moved to bed.
A Rapid Response was called on this patient, please see Rapid Response form.
[2023-12-30 07:46] VITALS: BP 118/69
[2023-12-30] MEDS: TYLENOL 650 MG PO (07:50)
--- NOTE | 2023-12-30 09:39 | W.PN.HOSP.TC ---
Addendum entered and electronically signed by Sinan Rogers MD 12/30/23 14:39:
Case discussed with infectious disease and the patient is medically cleared for discharge. He has adequate support at home for continued supportive care.
Total time spent on d/c = 35 min. This included today's physical exam, progress note, review of laboratory and diagnostic data, preparation of discharge documents and prescriptions, and discussions about the pt's hospital course and discharge plan
with the patient and other biomedical engineering aide involved in the patient's care.
Original Note:
Today's Communication/Plan
-
see bold
Assessment / Plan
Assessment / Plan
Gen: continues to remain NAD, AAOx3.
Eyes: EOMI, PERRLA, no scleral icterus.
Neck: supple.
CV: continues to remain RRR, +S1/S2, no m/r/g.
Resp: continues to remain CTAB, no rales, wheezes, or rhonchi.
Abd: +BS, soft, NT, ND
Skin: No rashes.
Neuro: CN 2-12 intact, non-focal.
Psych: Normal mood and affect.
CXR (read by me): No acute cardiopulmonary abnormality.
CT brain: No acute intracranial abnormality noted.
MRI brain: No acute intracranial abnormality noted.
Acute encephalopathy:
-Extensive workup in the ER was unrevealing. Chest x-ray and CT scan of the brain are unremarkable. Urinalysis is not suggestive of urinary tract infection. No leukocytosis.
-pt febrile O/N
-COVID NEG
-Lyme IgG/IgM NEG
-s/p LP, WBC 30 with granulocytic predominance, glucose and protein normal. Acute meningitis PCR panel negative. West Nile CSF IgM pending.
-MRI brain unremarkable
-was on empiric vancomycin/cefepime/acyclovir, all stopped by ID
-neurology to see in c/s
Fall, syncope:
-around 0400 today. Pt had a mechanical fall but when the nurses lifted the pt up he became diaphoretic and lost consciousness briefly
-Elevated troponin likely nonischemic myocardial injury
-ECG (read by me): NSR @ 82, L-axis, normal intervals, no acute ST/TW changes
-tele reviewed, brief SVT vs sinus tachy
-check orthostatic VS
-check echo
-start IVFs
FULL/Lovenox
Anticipated Discharge: Within 24 hours
Subjective/Interval History
-
Date of Service: December 30, 2023
Denies CP/SOB/abd pain.
Objective Data
-
Labs:
Laboratory Results
12/30/23 12/30/23
03:50 03:50
WBC 10.2
Hgb 15.1
Hct 41.8
Plt Count 206
PT 15.1 H
INR 1.19
APTT Cancelled 28.3
Sodium 134 L
Potassium 4.2
Chloride 100
Carbon Dioxide 18 L
BUN 15
Creatinine 1.0
Glucose 125 H
Calcium 9.1
Total Bilirubin 1.5 H
AST 25
ALT 24
Alkaline Phosphatase 63
Vital Signs:
Vital Signs
Temp Pulse Resp BP Pulse Ox
99.1 F 75 16 118/69 99
12/30/23 09:32 12/30/23 07:46 12/30/23 07:46 12/30/23 07:46 12/30/23 07:46
I&O
12/29/23 12/30/23 12/31/23
06:59 06:59 06:59
Intake Total 972 / 972 1440 / 1440
Balance 972 / 972 1440 / 1440
--- NOTE | 2023-12-30 11:00 | CON.NEURO4 ---
Consultation - Neurology 4
-
CONSULTING PHYSICIAN: Raul Gutierrez MD(Neurology)
REFERRING PHYSICIAN: Hospitalist
DICTATED BY: Rc Gutierrez MD
DATE/TIME OF REQUEST: December 28, 2023
DATE/TIME OF CONSULTATION: December 28, 2023 1300
Reason for Consultation: Altered mental status
History of Present Illness:
This is a 73 year old right handed (male who has presented to the hospital with (chief complaint) of altered mental status. He gives a history of left ankle neoplasm status post resection, and
past medical history of chronic osteomyelitis of the left ankle area who was admitted with low-grade fever headache and confusion. History is obtained from chart review, patient interview, and history obtained from the patient's family who is at
the bedside.
According to family, the patient was in his usual state of health independent and was feeling well. His sons had come to visit him over the Day weekend. Earlier this morning he had gone to work and at that time he felt confused with some
mild headache. Because he was not feeling well, he went home early, and when the family checked on him later in the morning he reportedly was not making sense. There was ongoing confusion noted this a.m., and the family brought him to the
emergency room for further workup and evaluation.
At the time of my examination he is awake but feels foggy, but oriented to person place and month with normal speech pattern he has a mild headache which is diffuse and dull in nature. His son reports that he has been somewhat somnolent.
In the ER he was noted to have fever. He was then admitted and had a lumbar puncture later. CSF shows 30 WBCs, glucose of 54, protein of 56. Meningoencephalitis panel is negative
The patient traveled to [place] and [facility] . He does not recall any tick bites. mosquito bites. He notes no history of rash. He denies any neck pain or stiffness. He does have 1 dog, but has not seen any ticks on the dog.
Past Medical History: Left ankle chondrosarcoma left ankle osteomyelitis
Surgical History: Left ankle surgery
Family History: Noncontributory
Social History: Lives at home alone
Allergies: No known drug allergies
Home Medications: See addendum
Review of Symptoms:
Patient denies any fever, headache, chest pain, shortness of breath, GI or symptoms.
�Per the HPI.�All systems are reviewed negative except above.
�- Remove any of these problems that patient may have complained about in the HPI.
�- If patient is unresponsive, intubated or demented, say 'Per the HPI. I am unable to obtain a complete review of systems�because of patient's inability to provide history.'
Vital Signs:
The patient has a
Temp Pulse Resp BP Pulse Ox
102.2 F H 89 18 155/79 96
12/28/23 16:10 12/28/23 16:10 12/28/23 16:10 12/28/23 16:10 12/28/23 16:10
Physical Exam:
The patient is afebrile, heart sounds S1 and S2 are (regular / irregular), and chest is clear to auscultation bilaterally.
- If not clear, describe.
NIH Stroke Scale (if applicable):
I performed the NIH stroke scale on the patient on (date & time). The patient scored ( ) points on the NIH stroke scale assessment, which were assigned as follows:
Neurologic Examination:
The patient is awake, alert and oriented x 3. He is able to follow commands and answer questions appropriately. Speech is fluent and comprehension reading writing repetition there is no aphasia or dysarthria.
On cranial nerve assessment, pupils are 3 mm bilateral, round and reactive to light and accommodation. Visual fontenot are full. Extraocular movements are intact. Facial sensations are intact and bilaterally symmetrical, there is no facial asymmetry.
Hearing is intact bilaterally to normal conversation volume. Tongue palate and uvula are midline. Sternocleidomastoid strengths are full bilaterally.
Motor strengths are 5/5 bilateral upper and lower extremities on medical research [place] scale. There is no drift or involuntary movement noted.
Deep tendon reflexes are + bilateral upper and lower extremities and Babinski is absent bilaterally. Sensations of pain, touch, temperature and vibration are intact and bilaterally symmetrical. There was no extinction noted on double simultaneous
stimulation. Coordination is intact by finger to nose bilaterally. Romberg's and gait was not tested as patient is bedbound
Lab Results: See addendum
Neuro Imaging: CT head reveals atrophy small vessel disease mild ventricular enlargement
Impression:
Mr. YANDEL DALTON is a 73 year old M who has presented to the hospital with (symptoms/chief complaint) of confusion with no focal motor deficits
Differentials for the patient's presentation include:
1. Toxic metabolic encephalopathy secondary to sepsis
Recommendations:
1. IV antibiotics
2. ID evaluation
3. MRI brain
4. PT/OT
Discussed patient care with: Hospitalist
Allergies
-
Allergies
Allergy/AdvReac Type Severity Reaction Status Date / Time
No Known Allergies Allergy Verified 03/06/23 11:13
Vital Signs and Labs
-
Vital Signs and Labs:
Vital Signs
Temp Pulse Resp BP Pulse Ox
37.2 C 75 16 118/69 99
12/30/23 11:08 12/30/23 07:46 12/30/23 07:46 12/30/23 07:46 12/30/23 09:33
Lab Results
12/30/23 03:50
12/30/23 03:50
PT 15.1 Sec (11.4-14.6) H 12/30/23 03:50
INR 1.19 12/30/23 03:50
APTT 28.3 Sec (23.4-35.0) 12/30/23 03:50
APTT Cancelled 12/30/23 03:50
Sodium 134 mmol/L (135-145) L 12/30/23 03:50
Potassium 4.2 mmol/L (3.5-5.1) 12/30/23 03:50
BUN 15 mg/dl (9-20) 12/30/23 03:50
Glucose 125 mg/dl (70-99) H 12/30/23 03:50
Calcium 9.1 mg/dl (8.4-10.2) 12/30/23 03:50
Vitamin B12 876 pg/ml (239-931) 12/28/23 08:39
Medications
-
Active Medications
Generic Name Dose Route Start Last Admin
Trade Name Freq PRN Reason Stop Dose Admin
Acetaminophen 650 mg 12/28/23 16:07 12/30/23 07:50
Acetaminophen 325 Mg Tablet PO 01/25/24 16:06 650 mg
Q4HPRN PRN Administration
mild pain/CHESTER/temp> 100.4F
Enoxaparin Sodium 40 mg 12/29/23 18:00 12/29/23 17:48
Enoxaparin Sodium 40 Mg/0.4 Ml Syringe SC 01/26/24 17:59 40 mg
QPM ROSALIE Administration
Ondansetron HCl 4 mg 12/29/23 13:30 12/29/23 13:54
Ondansetron 4 Mg/2 Ml Vial IV 01/26/24 13:29 4 mg
Q6HPRN PRN Administration
NAUSEA/VOMITING
Sodium Chloride 0 flush 12/28/23 17:00 12/29/23 13:54
Sodium Chloride 0.9% (Flush) Syringe IV 01/25/24 16:59 2 flush
PER PROTOCOL ROSALIE Administration
Home Medications
�Medication �Instructions �Recorded
sulfamethoxazole 800 1 tab PO DAILY ankle wound 12/28/23
mg-trimethoprim 160 mg tablet
[2023-12-30 11:32] VITALS: BP 110/57
[2023-12-30 11:43] VITALS: BP 110/57; BP 88/54; BP 89/60; PULSE 66; PULSE 77; PULSE 85
[2023-12-30] MEDS: NSS 1000 IV (11:51)
--- NOTE | 2023-12-30 14:21 | W.PN.ID1 ---
Date of Service
Date of Service: December 30, 2023
Today's Communication
Continue with supportive measures. No objection to discharge from Infectious Diseases standpoint.
Assessment / Plan
Acute encephalopathy
- suspect viral etiology (ie. west nile virus, others)
Fever
Nausea/vomiting
Hx chronic (L) ankle osteomyelitis
- on suppressive bactrim
Recommendations:
Meningitis PCR panel negative. CSF cultures negative. Antibiotics discontinued.
Arthropod related viral serology ordered on CSF (West Nile, eastern equine, others), but is a send out and will take several days to return.
Continue with supportive measures.
Monitor neurostatus/cognition
Follow white count and temperature curve.
I had a long discussion with the patient and his family who are present at the bedside. Currently, we are only providing supportive measures, which she could receive at home. Family reports that there will be somebody around to monitor the patient
at all times. Given this, I have no objection to discharge.
����������������������������������������������������������
Chief Complaint
-: Fever and Other (Encephalopathy)
Subjective / Review of Systems
Patient overall reports feeling improved today. Temps have persisted, although temperature curve seems to be improving over the past 48 hours.
Vital Signs / Physical Exam
Vital Signs
Vital Signs
Temp Pulse Resp BP Pulse Ox
99 F 66 16 110/57 96
12/30/23 11:08 12/30/23 11:32 12/30/23 11:32 12/30/23 11:32 12/30/23 11:32
Physical Exam
Constitutional: Well Developed, Acutely Ill and Non-toxic
Cardiovascular: S1/S2; Negative S3/S4
Pulmonary: Clear and Non Labored
Gastrointestinal: Soft, Non Tender and Non Distended
Neurological: Awake, Alert and Oriented; Negative Meningeal Signs (No nuchal rigidity)
Psychological: Calm
Objective Data
Lab Data
Lab Results
12/30/23 03:50
12/30/23 03:50
PT 15.1 Sec (11.4-14.6) H 12/30/23 03:50
INR 1.19 12/30/23 03:50
APTT 28.3 Sec (23.4-35.0) 12/30/23 03:50
APTT Cancelled 12/30/23 03:50
Estimated Creat Clear 85 ml/min 12/30/23 03:50
Lactic Acid 1.9 mmol/L (0.7-2.0) 12/30/23 03:50
Total Bilirubin 1.5 mg/dl (0.2-1.3) H 12/30/23 03:50
AST 25 U/L (17-59) 12/30/23 03:50
ALT 24 U/L (0-50) 12/30/23 03:50
Alkaline Phosphatase 63 U/L (38-126) 12/30/23 03:50
Most recent labs reviewed.
Micro Results:
12/28/23 15:12 CSF Culture - Preliminary
Csf No Growth After 48 Hours
Gram Stain - Preliminary
12/28/23 09:37 Blood Culture - Preliminary
Blood/Venous No Growth in 48 hours- Final report to follow
12/28/23 08:52 Blood Culture - Preliminary
Blood/Venous No Growth in 48 hours- Final report to follow
12/28/23 22:27 MRSA Screen - Final
Nose No Methicillin Resistant Staphylococcus aureus isolated.
12/28/23 15:12 Meningitis/Encephalitis Panel (PCR) - Final
Csf
Imaging:
12/28/2023 CT head without contrast: No acute intracranial abnormalities noted. No large vessel territory infarction or mass. No acute intracranial hemorrhage. Please see full dictation for additional detail.
Care Review
Plan reviewed with: Physician (Hospitalist)
--- NOTE | 2023-12-30 14:22 | CM ---
Patient seen at bedside, sleeping. Patient daughter confirmed that she was encouraging patient to remain as long as needed. CM will continue to follow for discharge planning needs.
Plan; home with no needs vs home with VN.
--- NOTE | 2023-12-30 14:48 | W.DCSUMMARY ---
Discharge Summary
Discharge Data
Date of Admission: 12/28/23
Date of Discharge: 12/30/23
-
Pending Results: Yes
Additional Pending Results:
West Nile virus CSF IgM, arbovirus CSF IgG and IgM
Echo
Hospital Course
Primary diagnoses:
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
Syncope, likely vasovagal
Secondary diagnoses:
None
Consultants:
Infectious disease
Neurology
Imaging:
CXR (read by me): No acute cardiopulmonary abnormality.
CT brain: No acute intracranial abnormality noted.
MRI brain: No acute intracranial abnormality noted.
73-year-old male who presented with chief complaints of confusion, chills, headache is on the need to be done on admission. Hospital course per problem list:
Acute metabolic encephalopathy thought to be arthropod related due to viral encephalitis: The patient underwent an extensive workup in the ER which was unrevealing. Chest x-ray and CT scan of the brain were unremarkable as above. Urinalysis is not
suggestive of urinary tract infection. Patient did not have a leukocytosis. He was febrile while hospitalized but his fever curve did trend down. COVID testing was negative. Lyme IgG/IgM were negative. Patient underwent LP, CSF WBC 30 with
granulocytic predominance, glucose and protein normal. Acute meningitis PCR panel negative. West Nile CSF IgM and arbovirus CSF IgG and IgM were pending at the time of discharge. On admission the patient was placed on empiric
vancomycin/cefepime/acyclovir. All of these medications were stopped by ID. At the time of discharge the patient was receiving supportive care. The case was discussed with the patient's family and there were plenty of family members that were
able to care for him on discharge. He was cleared for discharge by infectious disease.
Fall and subsequent syncope: This occurred around 0400 on 12/30/23. The patient had a mechanical fall but when the nurses lifted the patient up he became diaphoretic and lost consciousness briefly. The patient had a minimally elevated troponin that
was likely nonischemic myocardial injury. ECG was without acute ischemic changes. Telemetry was reviewed by myself and showed brief SVT vs sinus tachycardia. Echocardiogram is being done just prior to discharge and the results will need to be
followed. Orthostatic vital signs were positive. He was placed on IV fluids.
The patient was adamant about leaving the hospital, even threatening to leave AGAINST MEDICAL ADVICE. As above the case was discussed with infectious disease and the patient was medically cleared for discharge.
Discharge Plan
-
Patient Disposition: Home (Routine Discharge)
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
Condition: Good
Diet: No restrictions
Activity: With assistance
Driving Restrictions: Not until seen by your Dr
Bathing Restrictions: None
Referrals:
Rubin Angela MD [Family Provider] - in less than 1 week
Prescriptions:
New
acetaminophen [Tylenol] 325 mg capsule
650 mg PO Q6H PRN (Reason: fever or pain) Qty: 1 0RF
Continued
sulfamethoxazole-trimethoprim 800-160 mg tablet
1 tab PO DAILY
Discharge Orders:
Discharge Patient (As Directed); Ordered 12/30/23
Ordered By: Sinan Rogers
Discharge Date and Time
Print Language: PORTUGUESE
[2024-01-02 08:49] LABS: West Nile Virus, IgM, CSF 0.43 IV (<=0.89)
== END 2023-12-30 16:10 | disposition home or self-care (01) | DRG 70 ==
LOC: 3 WEST ACU 13:20
PROVIDERS: Clinical Nurse Specialist Family Health; Nurse Practitioner Gerontology; Radiology Diagnostic Radiology; ADMITTING PHYSICIAN Internal Medicine; CONSULT PHYSICIAN Psychiatry & Neurology Neurology; EMERGENCY PHYSICIAN Emergency Medicine; FAMILY PHYSICIAN Internal Medicine; OTHER PHYSICIAN Internal Medicine Infectious Disease
PROC: B01B1ZZ Fluoroscopy of Spinal Cord using Low Osmolar Contrast (ICD-10-PCS; 2023-12-28)
PROC: 009U3ZX Drainage of Spinal Canal, Percutaneous Approach, Diagnostic (ICD-10-PCS; 2023-12-28)
DX: G93.40 Encephalopathy, unspecified (principal); A92.30 West Nile virus infection, unspecified; M86.672 Other chronic osteomyelitis, left ankle and foot; I5A Non-ischemic myocardial injury (non-traumatic); A86 Unspecified viral encephalitis; Z11.52 Encounter for screening for COVID-19
CPT/HCPCS: 62270; 62328; 70450; 70553; 71046; 80053; 81003; 81015; 82607; 82746; 82945; 82962; 83605; 84157; 84484; 85025; 85610; 85730; 86618; 86788; 87015; 87040; 87070; 87205; 87483; 87811; 89051; 93005; 93306; 96374; 96375; 97163; 97166; 99285

== ENCOUNTER 2024-01-07 11:20 | Emergency (ER) | payer OTHER, MEDICARE, SELFPAY ==
[2024-01-07 11:27] VITALS: BP 129/72; BMI 28.0
[2024-01-07 11:32] VITALS: BP 129/72
--- NOTE | 2024-01-07 11:41 | EDRN ---
Pt is declining to change or have anything done as he states he is feeling sl better now but does say he still has sl SOB.
--- NOTE | 2024-01-07 11:47 | EDRN ---
Pt just ambulated to BR and back and was 93-95% POX on room air. Waveform looked like possible ectopy so placed on night monitor w/ pt's permission at this time.
[2024-01-07 12:15] VITALS: BP 146/78
--- NOTE | 2024-01-07 12:27 | ED.GENMED ---
History of Present Illness
General
Chief Complaint: Weakness
Source: patient and family (son)
Exam Limitations: none
Time Seen by Provider: 01/07/24 12:03
Nursing documentation reviewed up to this point in time: agreed with
History of Present Illness
History of Present Illness:
The patient is a 73-year-old man who reports that he was recently in the hospital and underwent many tests and did not sleep well. He reports that over the last few evenings, he has been having difficulty sleeping. He reports that when he woke up
this morning, he felt weak and short of breath. He reports that this episode lasted only few minutes and now he feels completely better and wants to go home soon as possible. Patient denies any chest pain, cough, headache, sore throat, or any
other complaints. He attributes his symptoms earlier to just being sleep deprived and exhausted from his recent admission. Patient states he wants to get out of here soon as possible. Patient denies leg pain and leg swelling that is new. He
denies a history of PE and DVT.
Past History
Past History
ED Past Medical History: Cancer
ED Past Surgical History: Orthopedic
Social History
Tobacco: Former smoker
Alcohol: Other
Drug: None
Personal: Single
Living: alone
Employment: Employed
Family History
Family History: Other
Review of Systems
Review of Systems
Allergies reviewed?: Yes
Other source history: family (Son is at the bedside)
All Other Systems: ROS reviewed and negative except as documented in HPI and ROS
Constitutional: Reports fatigue
EENT: Reports no symptoms
Respiratory: Reports trouble breathing
Cardiac: Reports no symptoms
ABD/GI: Reports no symptoms
: Reports no symptoms
Musculoskeletal: Reports no symptoms
Skin: Reports no symptoms
Neurological: Reports no symptoms
Endocrine: Reports no symptoms
Hematologic/Lymphatic: Reports no symptoms
Psychiatric: Reports no symptoms
Phy Exam
Physical Exam
Physical Exam:
Physical Exam
General: no apparent distress, not acutely ill. Well and comfortable appearing. Speaks in full sentences, conversational
Neck: supple. no meningeal signs. normal posterior pharynx
Heart: s1/s2 regular rate and rhythm, no murmur. equal radial pulses.
Lungs: no acute respiratory distress. clear bilaterally
Abdomen: normal bowel sounds. not tender. no CVAT
Neuro: alert and oriented. no focal neurological deficits
Skin: no rash
Psychiatric: well kept. interactive and cooperative
Extremities: no edema. no calf tenderness. negative homans. good distal pulses
Course
Orders/Labs/Results
Orders:
Orders
01/07/24 12:39
Electrocardiogram (*1) Urgent
Reason for Study: Chest Pain
EKG- Treatment ONCE
Vital Signs
Initial and Last Documented VS:
Initial Vital Signs
Temp Pulse Resp BP Pulse Ox
98.1 F 72 16 129/72 98
01/07/24 11:27 01/07/24 11:27 01/07/24 11:27 01/07/24 11:27 01/07/24 11:27
Last Documented Vital Signs
Temp Pulse Resp BP Pulse Ox
98.1 F 67 14 146/78 98
01/07/24 11:27 01/07/24 12:30 01/07/24 12:30 01/07/24 12:15 01/07/24 12:30
MDM/Problems Addressed
Differential Diagnosis Includes:
Acute dehydration, acute coronary syndrome, cardiac arrhythmia, CHF, pneumonia, PE
MDM/Problems Addressed:
Patient reports acute generalized weakness and shortness of breath
Chronic conditions affecting care:
Given patient was recently mated to the hospital, he is at increased risk of pneumonia and PE
Chronic conditions affecting care: HTN
Acute Exacerbation and/or Progression of Chronic Illness:
Patient is acutely hypertensive, likely due to anxiety being here
Acute Exacerbation and/or Progression of Chronic Illness: HTN
*Pulse Oximetry
Patient hypoxic: no
*EKG
Interpreted by ED Provider?: Yes
Interpretation: abnormal
Comparison EKG: no changes
Rate: normal
Rhythm: sinus
[place]: left axis deviation
Interval: normal interval
QRS Pattern: normal QRS
Ischemia: non-specific ST changes
*[employer] Interpretation
Rate: normal
Interpretation: normal
Rhythm: sinus
*Critical Care Note
Total Time (30-74mins, 75-104mins- exclusive of procedures): Not Applicable
Data Reviewed
Review of Other/Old Records Reveals: Discharge Summary (Discharge summary reviewed from earlier this month when patient was admitted for viral encephalitis)
Source: patient and family (Son)
Further Testing Considered But Not Given:
Patient does get tachycardic with walking. I did encourage that patient have us check basic blood work on him and cardiac enzymes given his recent shortness of breath and generalized fatigue, however, patient adamantly wants to go home. His son is
at the bedside and reports that he will watch his father today and bring him back with any worsening symptoms. Patient does have clear breath sounds so I do not hear any sign of pneumonia or heart failure. It is doubtful patient has a PE given
that his shortness of breath is gone and he denies all chest pain. Patient recently had a cardiac echo that looked normal. Patient likely has dehydration and encouraged to rest and drink lots of fluids.
Patient Management
Social determinants of health affecting care: Strong social support
Escalation/DeEscalation of care consider admission/obs:
Patient appears well. Lungs are clear. He is breathing comfortably and states his symptoms are gone and wants to go home. Son is at the bedside and assures me that he will bring her back with any worsening symptoms such as recurrence of the
shortness of breath, fever, cough or chest pain.
ED Attending Note
-
Portions of this chart may have been created with voice recognition software.� Occasional wrong word or��sound alike� substitutions may have occurred due to the inherent limitations of voice recognition software.
Discharge Plan
Departure
Patient Disposition: Home (Routine Discharge)
Date of Disposition: 01/07/24
Time of Disposition: 12:49
Patient with high blood pressure during this ER visit?: Yes
Condition: Good
Covid-19: Not Applicable
Discharge Problem:
Acute dehydration, Acute dyspnea
Instructions: Dehydration, Adult ED, Shortness of Breath, Adult ED, BLOOD PRESSURE
Prescriptions:
No Action
sulfamethoxazole-trimethoprim 800-160 mg tablet
1 tab PO DAILY
acetaminophen [Tylenol] 325 mg capsule
650 mg PO Q6H PRN (Reason: fever or pain) Qty: 1 0RF
Referrals:
Rubin Angela MD [Family Provider] -
Activity Restrictions/Additional Instructions:
Return with any recurrence of shortness of breath, weakness, lightheadedness, chest pain or fever.
Interventions
Interventions:
*Risk Screen - Suicide Last Done: 01/07/24 11:27
*General Assessment Last Done: 01/07/24 11:27
*Neglect/Abuse Screening Last Done: 01/07/24 11:27
ED- Fall Risk Assessment Last Done: 01/07/24 11:39
*ED COVID-19 Vaccine History Last Done: 01/07/24 11:27
*Nursing Disposition Last Done: 01/07/24 12:50
ED- Cardiac Assessment Last Done: 01/07/24 12:45
ED- Neurological Assessment Last Done: 01/07/24 12:45
ED- Pulmonary Assessment Last Done: 01/07/24 12:45
Discharge Date and Time
Discharge Date/Time: 01/07/24 12:50
Print Language: CHINESE
--- NOTE | 2024-01-07 12:35 | EDRN ---
Dr. Greenberg in room w/pt. Pt asking to be discharged at this time.
--- NOTE | 2024-01-07 12:40 | EDRN ---
Pt ambulated in hallway on monitor and walked from room #24 to #32. Outside of #29 pt's HR increased to 146 and had been increasing during walk. Pt denied any dizziness or lightheadedness. Pt had a fast pace during walk. Dr. Greenberg walked w/ pt
and myself and POX remained 98-99% during entire walk.
--- NOTE | 2024-01-07 12:44 | EDRN ---
ED PCT in room performing an EKG at this time as ordered.
== END 2024-01-07 12:50 | disposition home or self-care (01) ==
LOC: EMR 11:20
PROVIDERS: EMERGENCY PHYSICIAN Emergency Medicine; FAMILY PHYSICIAN Internal Medicine
DX: E86.0 Dehydration (principal); R06.09 Other forms of dyspnea; R03.0 Elevated blood-pressure reading, without diagnosis of hypertension
CPT/HCPCS: 99283; 93005